=== PATIENT | male | born 1985 | race African-American/Black ===

== ENCOUNTER 2016-08-03 18:25 | Emergency (ER) | payer MEDICAID ==
[~2016-08-03] VITALS: Ht 170.2 cm; Wt 73.0 kg
[2016-08-03 18:51] VITALS: BP 100/54
== END 2016-08-03 21:20 | disposition left against medical advice (07) ==
LOC: ER 18:25
DX: R10.31 Right lower quadrant pain (principal); R11.2 Nausea with vomiting, unspecified; R51 Headache; Z53.21 Procedure and treatment not carried out due to patient leaving prior to being seen by health care provider